=== PATIENT | female | born 2000 | race Caucasian/White ===

== ENCOUNTER 2021-08-30 18:17 | Emergency (ER) | payer OTHER ==
[2021-08-30 21:08] LABS: CORONAVIRUS 2019 SARS-COV-2 NEGATIVE (NEGATIVE); INFLUENZA A NAA NEGATIVE (NEGATIVE)
[2021-08-30] MEDS ORDERED: AMOXICILLIN500 MG PO (21:12)
== END 2021-08-30 21:28 | disposition home or self-care (01) ==
LOC: FER 18:17
PROVIDERS: Physician Assistant
DX: J02.0 Streptococcal pharyngitis (principal); B95.5 Unspecified streptococcus as the cause of diseases classified elsewhere; Z20.822 Contact with and (suspected) exposure to COVID-19
CPT/HCPCS: 87880; 99284; U0002

== ENCOUNTER 2021-11-11 16:40 | Emergency (ER) | payer OTHER ==
[~2021-11-11 16:40] MED LIST: AMOXICILLIN500 MG PO
== END 2021-11-11 18:47 | disposition home or self-care (01) ==
LOC: FER 16:40
DX: N93.9 Abnormal uterine and vaginal bleeding, unspecified (principal); Z28.310 Unvaccinated for COVID-19
CPT/HCPCS: 99283

== ENCOUNTER 2022-01-22 09:48 | Emergency (ER) | payer OTHER ==
[2022-01-22] MEDS ORDERED: CYCLOBENZAPRINE10 MG PO (10:54)
[2022-01-22] MEDS ORDERED: NAPROXEN500 MG PO (10:54)
[2022-01-22 10:55] LABS: BILIRUBIN NEGATIVE (NEGATIVE); BLOOD NEGATIVE Ery/uL (NEGATIVE); CLARITY CLEAR (CLEAR); COLOR YELLOW (YELLOW); GLUCOSE (U) NORMAL (NORMAL); LEUKOCYTES NEGATIVE Leu/uL (NEGATIVE); NITRITE NEGATIVE (NEGATIVE); PROTEIN NEGATIVE (NEGATIVE); SPECIFIC GRAVITY >=1.030 (1.001-1.030); UROBILINOGEN 0.2 mg/dL (0.2-1.0)
== END 2022-01-22 11:29 | disposition home or self-care (01) ==
LOC: FER 09:48
PROVIDERS: Emergency Medicine
DX: S39.012A Strain of muscle, fascia and tendon of lower back, initial encounter (principal); Z28.310 Unvaccinated for COVID-19; X58.XXXA Exposure to other specified factors, initial encounter
CPT/HCPCS: 72100; 81003; J1885